=== PATIENT | female | born 1955 | race Caucasian/White ===

== ENCOUNTER 2021-08-11 14:50 | Outpatient (CLI) | payer MEDICARE | END 2021-08-11 14:51 | disposition home or self-care (01) | LOC: SCSMRI 14:50 | PROVIDERS: ATTEND Family Medicine | DX: M50.10 Cervical disc disorder with radiculopathy, unspecified cervical region (principal) | CPT/HCPCS: 72141 ==

== ENCOUNTER 2021-11-30 15:10 | Outpatient (CLI) | payer MEDICARE | END 2021-11-30 15:11 | disposition home or self-care (01) | LOC: SCSRAD 15:10 | PROVIDERS: ATTEND Physician Assistant Medical | DX: M54.50 Low back pain, unspecified (principal); R05.9 Cough, unspecified; M47.816 Spondylosis without myelopathy or radiculopathy, lumbar region; M41.9 Scoliosis, unspecified | CPT/HCPCS: 71046; 72110 ==